=== PATIENT | male | born 1970 | race Caucasian/White ===

== ENCOUNTER 2024-06-04 11:51 | Outpatient (CLI) | payer MEDICAID ==
[~2024-06-04 11:51] MED LIST: GADOTERATE MEGLUMINE 7.5 MMOL/15 ML VIAL IV ONE
[2024-06-05] MEDS ORDERED: GADOTERATE MEGLUMINE 7.5 MMOL/15 ML VIAL IV ONE (17:42)
== END 2024-06-04 23:59 | disposition home or self-care (01) ==
LOC: MRI 11:51
PROVIDERS: ATTEND Family Medicine
DX: G44.52 New daily persistent headache (NDPH) (principal); H53.149 Visual discomfort, unspecified; F40.298 Other specified phobia
CPT/HCPCS: 70553; A9575